=== PATIENT | male | born 1990 | race Caucasian/White ===

== ENCOUNTER 2023-10-06 08:56 | Outpatient (REF) | payer OTHER, SELFPAY ==
[2023-10-06 09:12] LABS: MANUAL DIFF FLAG NO
[2023-10-06 09:49] LABS: Basophils Absolute Auto 0.1 X10*3/uL (0.0-0.2); Eosinophils Absolute Auto 0.1 X10*3/uL (0.0-0.4); Hematocrit 48.3 % (42.0-52.0); Hemoglobin 15.5 g/dl (14.0-18.0); Imm Gran Abs Auto 0.08 X10*3/uL (0.00-0.03); Imm Gran Pct Auto 0.8 % (0.0-0.4); Lymphocytes Absolute Auto 2.3 X10*3/uL (1.2-4.9); Lymphocytes Percent Auto 21.7 % (20-40); Mean Corpuscular HGB Conc 32.1 g/dl (31.0-36.0); Mean Corpuscular Hemoglobin 29.4 pg (27.0-33.0); Mean Corpuscular Volume 91.7 fL (80.0-98.0); Mean Platelet Volume 10.3 fL (9.4-12.4); Monocytes Absolute Auto 0.9 X10*3/uL (0.1-1.2); Monocytes Percent Auto 8.6 % (2-11); Neutrophils Percent Auto 66.9 % (45-73); Platelet Count 346 X10*3/uL (160-400); Red Blood Count 5.27 X10*6/uL (4.60-5.80); Red Cell Distribution Width 12.3 % (11.0-16.0); White Blood Count 10.4 X10*3/uL (4.8-10.8)
[2023-10-06 09:57] LABS: Estimated Average Glucose 103 mg/dL; Hemoglobin A1c % 5.2 % (<6.0)
[2023-10-06 10:44] LABS: Alanine Aminotransferase 182 U/L (0-40); Albumin Level 4.6 g/dL (3.5-5.0); Alkaline Phosphatase 146 U/L (39-117); Anion Gap 12 (12-20); Aspartate Amino Transferase 52 U/L (5-37); Bilirubin Total 0.4 mg/dL (0.0-1.0); Blood Urea Nitrogen 18 mg/dL (9-16); Calcium 9.7 mg/dL (8.4-10.2); Carbon Dioxide 31 mmol/L (22-29); Chloride 104 mmol/L (96-108); Cholesterol 219 mg/dL (<200); Estimated Glomerular Filt Rate > 60; Glucose Fasting 107 mg/dL (60-99); HDL Cholesterol 56 mg/dL (>40); LDL Cholesterol Calculated 134 mg/dL (<100); Potassium 4.4 mmol/L (3.3-5.1); Sodium 143 mmol/L (135-145); Total Protein 7.7 g/dL (6.5-8.0); Triglycerides 145 mg/dL (<150)
[2023-10-06 11:04] LABS: Thyroid Stimulating Hormone 1.49 uIU/mL (0.32-4.0)
[2023-10-06 11:07] LABS: HBS Num1 26.54 mIU/mL (0-7.99); HBc Num1 0.03 S/CO (0.00-0.79); HBsAGNum1 0.28 S/CO (0.00-0.99); HIV AB/AG Nonreactive (Nonreactive); HIV Num 1 0.04 S/CO (0.00-0.99); Hepatitis B Core Antibody Nonreactive (Nonreactive); Hepatitis B Surface Antigen Negative (Negative); ~HepC Num1 0.07 S/CO (0.00-0.79); ~Hepatitis B Surface Antibody REACTIVE (Nonreactive); ~Hepatitis C Antibody Nonreactive (Nonreactive)
== END 2023-10-06 08:57 | disposition home or self-care (01) ==
LOC: HO.LAB 08:56
PROVIDERS: PCP Hospitalist; Visit Provider Psychiatry & Neurology Psychiatry
DX: F33.1 Major depressive disorder, recurrent, moderate (principal)
CPT/HCPCS: 36415; 80053; 80061; 83036; 84443; 85025; 86704; 86706; 86803; 87340; 87389

== ENCOUNTER → 2023-10-20 09:45 | Outpatient (BNV) | payer OTHER, SELFPAY | PROVIDERS: Visit Provider Psychiatry & Neurology Psychiatry | DX: F33.1 Major depressive disorder, recurrent, moderate (principal); F34.0 Cyclothymic disorder; F14.20 Cocaine dependence, uncomplicated; F63.89 Other impulse disorders; F41.3 Other mixed anxiety disorders; F11.21 Opioid dependence, in remission | CPT/HCPCS: 99213; 99214; 99233 ==

== ENCOUNTER 2023-10-22 09:45 | Outpatient (RCR) | payer OTHER, SELFPAY ==
[2023-10-05 12:05] VITALS: BP 132/84; PULSE 80; TEMP 37.6
[2023-10-05 12:07] VITALS: BMI 30.1
--- NOTE | 2023-10-05 15:19 | PC.ADMIT ---
Patient is a 33 year old male who was referred to [facility] by a former patient who is patient's partner d/t increased depression and anxiety with a history of struggling with substance use. Patient reports past history of opiate use. Reports he was prescribed MAT with Methadone. He reports he stopped using Methadone on his own, cold turkey and went into withdrawals. He stated he was up to 140 mg of Methadone daily. He stated he did not want to be taking Methadone anymore. He is not interested in MAT at this time. He denied cravings for opiates. Reports last used Percocets 5-6 years ago. History of using Xanax 7 years ago. Struggling with cocaine use daily last used last Wednesday. Longest period of sobriety in the past 14 years from cocaine was six months or less. Reports it impacts his life in a negative way, including financially, wants to quit for his health and to have more energy. Patient given written and verbal education on cocaine use disorder and 101 things to do instead of using drugs. He currently sees an addiction therapist. Patient interested in a [employer]. He called Manny Santana in my office and left him his information regarding his interest in a varsity baseball coach. Not interested in MAT at this time. Patient also using Marijuana smoking a joint daily. Patient is alert and oriented x4. Calm and cooperative. Presented with depressed mood and anxious affect. He denied SI. He was given a copy of his safety plan if needed. He is currently not on any prescription medications with the exception of a rescue inhaler for Asthma. Lives in an in-law apartment in families home Parents are supportive. He also is self employed doing construction work. [ End ]
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
[2023-10-06 14:53] LABS: Amphetamine Screen Urine Not Detected (Not Detect); Barbiturates, Urine Not Detected (Not Detect); Benzodiazepines Screen Urine Not Detected (Not Detect); Cannabinoid Screen Urine POSITIVE (Not Detect); Cocaine Screen Urine POSITIVE (Not Detect); Fentanyl, urine Not Detected (Not Detect); Opiate Screen Urine Not Detected (Not Detect); Phencyclidine Screen Urine Not Detected (Not Detect)
--- NOTE | 2023-10-07 14:50 | HO.PHP ---
The client's case was reviewed and opened in treatment team.
--- NOTE | 2023-10-14 12:49 | PC.NURSE ---
Weston did not attend the group. He c/o a sore throat and swollen glands. Speech slightly garbled d/t swelling glands/sore throat. Stated he did not feel well. Temp 98.7. Recommended he go to urgent care to f/u and he agreed. He left the program to go to urgent care.
--- NOTE | 2023-10-15 07:21 | HO.PHP ---
10/08/23- [facility] staff member Shanon Maya faxed over the referral for OP therapy and Med mangement to [facility]. [facility] staff member is awaiting a scheduled appointment date and time.
--- NOTE | 2023-10-15 08:58 | PC.NURSE ---
No reported that Weston called out sick. He reported he has an infection in his mouth.
--- NOTE | 2023-10-19 11:51 | HO.PHP ---
Aftercare appts with [facility] for Weston Love were received today. Pt given the names, appts dates, time and location. Pt's OP therapy is on at 10 am with Fernanda Shultz at [address] [place] [address] in [place], [place] and Pt's appt with Med Provider Keely Cuadra, is on , at 2 pm, same location. Both in person.
--- NOTE | 2023-10-21 21:10 | HO.PHPPROGNO ---
Subjective Subjective Date of Service: 10/21/23 Reason For Visit: anxiety,NADIA Medication Compliance: Yes Side effects from medications: No Attending Groups: Yes Review of Systems Acute medical concerns: No Patient reports he is still not sleeping well. He has been taking 100 mg of Seroquel and has provided only modest improvement. He ran out 4 days ago. He reportedly used to be prescribed 300 mg for sleep, and feels that would be helpful and was also help for depression, irritability and general mood stability. Reports his irritability at a 8 out of 10, and depression at a 5 out of 10 in severity. Denies any hopelessness or SI. Energy has been pretty low on account of poor sleep, usually he has a good amount of energy. He reports relapse x 1 in the interim, used cocaine on New Years Bozena but has been abstaining since. He continues to have cravings to use (cocaine) and says he is now open to try the topiramate we had discussed. Feels he could use the extra support. He has continued on guanfacine ER 2 mg has been helpful for anxiety and perhaps is more helpful for focus. Feels a little more present in the moment when he takes it. He reports being prone to elevated blood pressure in the past and that the guanfacine had been helping at 2 mg but given he is almost out of the guanfacine he has been rationing it, and has not been taking it regularly. He is sleeping about 3 hours at night with difficulty falling asleep, feeling restless,difficulty staying asleep. He is agreeable to having the dose bumped up to 3 mg guanfacine in the AM and a night time dose of 1 mg will be added. We will check his vital signs in the AM. He denies any hopelessness or SI, no aggressive ideation or HI. No issues with paranoia or AVH. Mental Status Exam Mental Status Exam Narrative: Alert, oriented, in no acute distress. Casually dressed. Calm, cooperative, forthcoming. Eye contact. Mood depressed, affect constricted. Normal speech. No evidence of thought disorder. Thought content relevant to stressors. No SI or HI on inquiry. No evidence of steffen or psychosis. Cognition grossly intact. Sensorium clear. Insight and judgment fair. Diagnostics Vital Signs (24Hr): BMI result Body Mass Index 30.1 Assessment & Plan Assessment & Plan (1) Major depressive disorder, recurrent, moderate: Status: Acute Code(s): F33.1 - Major depressive disorder, recurrent, moderate (2) Cyclothymia: Status: Acute Code(s): F34.0 - Cyclothymic disorder (3) Cocaine use disorder, severe, dependence: Status: Acute Code(s): F14.20 - Cocaine dependence, uncomplicated (4) Other impulse disorders: Status: Acute Code(s): F63.89 - Other impulse disorders Assessment and Plan: r/o ADHD hyperactive/impulsive type (5) Other mixed anxiety disorders: Status: Acute Code(s): F41.3 - Other mixed anxiety disorders (6) Opioid use disorder, moderate, in early remission, dependence: Status: Acute Code(s): F11.21 - Opioid dependence, in remission Plan increase buproprion SR 100 mg to BID (in AM and lunch) increase guanfacine ER to 3 mg qAM start guanfacine ER 1 mg daily at bedtime switch from ER to DR quetiapine 100 mg tablets, may increase to 200 mg tonight and extra 100 mg if needed will check VS tomorrow on guanfacine ER 2 mg start topiramate 25 mg qhs Patient educated on: diagnosis, medication risk/benefits and substance abuse Informed Consent: understands Certification I certify that partial hospital treatment is medically necessary due to the symptoms and problems resulting from the patient's mental illness and the failure to treat the patient at the partial hospital level of care would likely result in the patient requiring inpatient psychiatric care which could not be prevented at a less intensive level of care. Total time managing care of this patient today ____ minutes. Discharge Plan Discharge Attending provider: Joyce Loving Additional Instructions: OP Therapy: Appointment is on October 28, 2023 at 10 AM with Fernanda Shultz. Med Management: Appointment is on November 11, 2023 at 2 PM with Keely grace [facility]. Medications: New bupropion HCl 100 mg tablet sustained-release 12 hr 100 mg PO BID 30 Days Qty: 60 0RF guanfacine 3 mg tablet extended release 24 hr 3 mg PO DAILY 30 Days Qty: 30 0RF quetiapine 300 mg tablet 300 mg PO BEDTIME Qty: 30 0RF topiramate 25 mg tablet 25 mg PO BEDTIME Qty: 30 0RF Continued albuterol sulfate [Ventolin HFA] 90 mcg/actuation HFA aerosol inhaler 2 puff inhalation Q4-6H PRN (Reason: sob) Changed guanfacine 2 mg tablet extended release 24 hr 2 mg PO QPM 30 Days Qty: 30 0RF quetiapine 100 mg tablet 100 mg PO BEDTIME PRN (Reason: sleep) Qty: 30 0RF Stand Alone Forms: Patient Portal Discharge page Patient Education: Cocaine Abuse (DC), Depression (DC)
--- NOTE | 2023-10-22 19:05 | HO.PHPPROGNO ---
Subjective Subjective Date of Service: 10/22/23 Reason For Visit: anxiety,NADIA Interim History: Patient seen for follow-up, he anticipates discharge at the end of program today. He reports taking 2 of the guanfacine last night. Capac calmer last night, still not sleeping well on account of Seroquel was not sent to pharmacy last night. He is hoping to be bumped up to 400 mg. WIll plan to send [address] tablets (which he used to be on) and will send PRN 100 mg tabs and should start back at 150 mg (1/2 tablet) just to be sure. However he had been taking 100 mg qhs and says he only slept a few hours. He took his last guanfacine last night so he has none this morning. He was elevated BP this AM, will bump up guanfacine ER to 3 mg and will continue HS dose at 2 mg. He reports his mood as stable, he felt less tired yesterday afternoon and more focused with increase of Wellbutrin. He denies any adverse effects. He denies any hopelessness or SI. Mental Status Exam Mental Status Exam Narrative: Alert, oriented, in no acute distress. Casually dressed. Calm, cooperative, forthcoming. Eye contact. Mood better , affect variable. Normal speech. No evidence of thought disorder. Thought content relevant to stressors. No SI or HI on inquiry. No evidence of steffen or psychosis. Cognition grossly intact. Sensorium clear. Insight and judgment fair. Diagnostics Vital Signs (24Hr): BMI result Body Mass Index 30.1 Assessment & Plan Assessment & Plan (1) Major depressive disorder, recurrent, moderate: Status: Acute Code(s): F33.1 - Major depressive disorder, recurrent, moderate (2) Cyclothymia: Status: Acute Code(s): F34.0 - Cyclothymic disorder (3) Cocaine use disorder, severe, dependence: Status: Acute Code(s): F14.20 - Cocaine dependence, uncomplicated (4) Other impulse disorders: Status: Acute Code(s): F63.89 - Other impulse disorders (5) Other mixed anxiety disorders: Status: Acute Code(s): F41.3 - Other mixed anxiety disorders (6) Opioid use disorder, moderate, in early remission, dependence: Status: Acute Code(s): F11.21 - Opioid dependence, in remission Plan Discharge from [facility] Continue on medications as prescribed Will defer further medication management to new outpatient provider (awaiting appointment/referral) Patient may call back [facility] to request refills if intake is further than 30 days Lab work results were reviewed with patient including elevated LFTs, lipids, FBG although HbA1c was wnl. Certification I certify that partial hospital treatment is medically necessary due to the symptoms and problems resulting from the patient's mental illness and the failure to treat the patient at the partial hospital level of care would likely result in the patient requiring inpatient psychiatric care which could not be prevented at a less intensive level of care. Total time managing care of this patient today ____ minutes. Discharge Plan Discharge Attending provider: Joyce Loving Additional Instructions: OP Therapy: Appointment is on October 28, 2023 at 10 AM with Fernanda Shultz. Med Management: Appointment is on November 11, 2023 at 2 PM with Keely Cuadra through [facility]. Medications: New bupropion HCl 100 mg tablet sustained-release 12 hr 100 mg PO BID 30 Days Qty: 60 0RF guanfacine 3 mg tablet extended release 24 hr 3 mg PO DAILY 30 Days Qty: 30 0RF quetiapine 300 mg tablet 300 mg PO BEDTIME Qty: 30 0RF topiramate 25 mg tablet 25 mg PO BEDTIME Qty: 30 0RF Continued albuterol sulfate [Ventolin HFA] 90 mcg/actuation HFA aerosol inhaler 2 puff inhalation Q4-6H PRN (Reason: sob) Changed guanfacine 2 mg tablet extended release 24 hr 2 mg PO QPM 30 Days Qty: 30 0RF quetiapine 100 mg tablet 100 mg PO BEDTIME PRN (Reason: sleep) Qty: 30 0RF Stand Alone Forms: Patient Portal Discharge page Patient Education: Cocaine Abuse (DC), Depression (DC)
== END 2023-10-22 23:59 | disposition home or self-care (01) ==
LOC: HO.PHPA 09:45
PROVIDERS: Visit Provider Psychiatry & Neurology Psychiatry
DX: F33.1 Major depressive disorder, recurrent, moderate (principal); F41.3 Other mixed anxiety disorders; F14.20 Cocaine dependence, uncomplicated; F11.21 Opioid dependence, in remission; Z79.899 Other long term (current) drug therapy
CPT/HCPCS: 80307; 90791; 90853